=== PATIENT | female | born 1985 | race American Indian/Alaskan Native ===

== ENCOUNTER 2016-11-07 14:58 | Emergency (ER) | payer MEDICAID ==
[2016-11-07] MEDS ORDERED: TORADOL IM ONE (20:09)
--- NOTE | 2016-11-07 20:16 | Emergency Department Report ---
ED Headache HPI - General Chief Complaint: Headache Stated Complaint: SWELLING EAR/NECK Time Seen by Provider: 11/07/16 20:07 Source: patient, RN notes reviewed - History of Present Illness Initial Comments: 30 y/o female complain of headache x 2 days with bump to back of ear and neck . Quality: mild Head Injury Location: frontal Recent Head Trauma: no recent headache/trauma Modifying Factors: improves with: movement Associated Symptoms: denies symptoms, nasal congestion Allergies/Adverse Reactions: Allergies No Known Allergies Allergy (Unverified 11/07/16 20:23) Home Medications: Ambulatory Orders Amoxicillin/K Clav Tab [Augmentin 875 mg] 1 tab PO Q12HR #14 tab 11/07/16 ED Review of Systems ROS: Stated complaint: SWELLING EAR/NECK Other details as noted in HPI Constitutional: denies: chills, fever Eyes: denies: eye pain, eye discharge, vision change ENT: ear pain. denies: throat pain Respiratory: denies: cough, shortness of breath, wheezing Cardiovascular: denies: chest pain, palpitations Endocrine: no symptoms reported Gastrointestinal: denies: abdominal pain, nausea, diarrhea Genitourinary: denies: urgency, dysuria, discharge Musculoskeletal: denies: back pain, joint swelling, arthralgia Skin: denies: rash, lesions Neurological: denies: headache, weakness, paresthesias Psychiatric: denies: anxiety, depression Hematological/Lymphatic: denies: easy bleeding, easy bruising ED Past Medical Hx - Medications Home Medications: Home Medications Medication Instructions Recorded Confirmed Last Taken Type Amoxicillin/K Clav Tab [Augmentin 1 tab PO Q12HR #14 tab 11/07/16 Unknown Rx 875 mg] ED Physical Exam - General Limitations: No Limitations General appearance: alert, in no apparent distress - Head Head exam: Present: atraumatic, normocephalic - Eye Eye exam: Present: normal appearance, PERRL Pupils: Present: normal accommodation - ENT ENT exam: Present: mucous membranes moist - Expanded ENT Exam Expanded TM/Canal exam: Effusion: Right TM, Left TM, Mastoid Tenderness: Right TM, Left TM Mouth exam: Present: normal external inspection Throat exam: Positive: tonsillar erythema, other (post nasal drip ) - Neck Neck exam: Present: normal inspection, lymphadenopathy - Respiratory Respiratory exam: Present: normal lung sounds bilaterally. Absent: respiratory distress, wheezes, rales, rhonchi - Cardiovascular Cardiovascular Exam: Present: regular rate, normal rhythm. Absent: systolic murmur, diastolic murmur, rubs, gallop - GI/Abdominal GI/Abdominal exam: Present: soft, normal bowel sounds - Extremities Exam Extremities exam: Present: normal inspection - Back Exam Back exam: Present: normal inspection - Neurological Exam Neurological exam: Present: alert, oriented X3 - Psychiatric Psychiatric exam: Present: normal affect, normal mood - Skin Skin exam: Present: warm, dry, intact, normal color. Absent: rash ED Course Vital Signs 11/07/16 11/07/16 15:00 20:23 Temperature 98.4 F Pulse Rate 109 H Respiratory 20 20 Rate Blood Pressure 120/72 O2 Sat by Pulse 100 Oximetry ED Medical Decision Making - Medical Decision Making sinusitis Critical care attestation.: If time is entered above; I have spent that time in minutes in the direct care of this critically ill patient, excluding procedure time. ED Disposition Clinical Impression: Sinusitis Qualifiers: Sinusitis location: frontal Chronicity: acute Recurrence: non-recurrent Qualified Code(s): J01.10 - Acute frontal sinusitis, unspecified Disposition: DISCHARGED TO HOME OR SELFCARE Is pt being admited?: No Does the pt Need Aspirin: No Condition: Stable Instructions: Sinusitis (ED) Prescriptions: Amoxicillin/K Clav Tab [Augmentin 875 mg] 1 tab PO Q12HR #14 tab Referrals: PRIMARY CARE, [Primary Care Provider] - 3-5 Days Forms: Work/School Release Form(ED) Time of Disposition: 20:22
[2016-11-07 21:04] VITALS: BP 100/67
== END 2016-11-07 21:21 | disposition home or self-care (01) ==
LOC: ED 14:58
DX: J01.10 Acute frontal sinusitis, unspecified (principal)
CPT/HCPCS: 96372; 99282; J1885

== ENCOUNTER 2018-10-19 13:40 | Emergency (ER) | payer MEDICAID, OTHER ==
[2018-10-19] MEDS ORDERED: NORCO 5/325 PO ONE (16:49)
--- NOTE | 2018-10-19 16:49 | Emergency Department Report ---
HPI - General Chief Complaint: Upper Respiratory Infection Time Seen by Provider: 10/19/18 16:49 - HPI HPI: Room 30 The patient is a 32-year-old female presenting with a chief complaint of body aches and cough. The patient states she developed symptoms 10/16/2018 which consist of bodyaches nausea vomiting headache rhinorrhea and a cough productive of yellow sputum. Patient admits to a fever of 105F. Patient is to some shortness breath as well. 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 The patient states her children now have the same symptoms Location: [See above] Duration: 4 days Quality: Bodyaches Severity: Moderate Modifying factors: [see above] Context: [see above] Mode of transportation: [not driving] ED Past Medical Hx - Past Medical History Previous Medical History?: No - Surgical History Past Surgical History?: No - Family History Family history: no significant - Social History Smoking Status: Current Every Day Smoker (1 pack per day) Substance Use Type: None (denies illicit drug use) - Medications Home Medications: Home Medications Medication Instructions Recorded Confirmed Last Taken Type Amoxicillin/K Clav Tab [Augmentin 1 tab PO Q12HR #14 tab 11/07/16 Unknown Rx 875 mg] Ibuprofen [Motrin] 600 mg PO Q8H PRN #15 tablet 11/07/16 Unknown Rx ALBUTEROL Inhaler (OR & NICU) 2 puff IH QID PRN #1 inhalation 10/19/18 Unknown Rx [Proair] Amoxicillin [Amoxicillin TAB] 875 mg PO BID #20 tablet 10/19/18 Unknown Rx Benzonatate [Tessalon Perle] 100 mg PO TID PRN #30 capsule 10/19/18 Unknown Rx Ibuprofen [Motrin 800 MG tab] 800 mg PO Q8HR PRN #20 tablet 10/19/18 Unknown Rx Promethazine /Codeine 5 ml PO Q6H PRN #100 ml 10/19/18 Unknown Rx [Phenergan/Codeine 6.25-10 mg/5 ml] ED Review of Systems ROS: Stated complaint: FLU LIKE Other details as noted in HPI Constitutional: fever Eyes: denies: eye pain ENT: other (rhinorrhea) Respiratory: cough Cardiovascular: denies: dyspnea on exertion Endocrine: no symptoms reported Gastrointestinal: abdominal pain, nausea, vomiting Genitourinary: denies: dysuria Musculoskeletal: myalgia Neurological: headache Physical Exam - Physical Exam Vital Signs: Vital Signs 10/19/18 13:44 Temperature 99.7 F H Pulse Rate 116 H Respiratory 20 Rate Blood Pressure 126/82 O2 Sat by Pulse 96 Oximetry Physical Exam: GENERAL: The patient is well-developed well-nourished female sitting in chair. Been moderate discomfort HEENT: Normocephalic. Atraumatic. Extraocular motions are intact. Patient has moist mucous membranes. Nasal congestion. Oropharynx clear NECK: Supple. No meningitic signs are noted. Trachea midline CHEST/LUNGS: Clear to auscultation. There is no respiratory distress noted. HEART/CARDIOVASCULAR: Regular. There is no tachycardia. There is no gallop rub or murmur. ABDOMEN: Abdomen is soft, nontender. Patient has normal bowel sounds. There is no abdominal distention. SKIN: There is no rash. There is no edema. There is no diaphoresis. NEURO: The patient is awake, alert, and oriented. The patient is cooperative. The patient has normal speech MUSCULOSKELETAL: There is no evidence of acute injury. ED Course Vital Signs 10/19/18 13:44 Temperature 99.7 F H Pulse Rate 116 H Respiratory 20 Rate Blood Pressure 126/82 O2 Sat by Pulse 96 Oximetry - Reevaluation(s) Reevaluation #1: 10/19/18 17:42 Heart rate has improved to 89 bpm ED Medical Decision Making - Lab Data Laboratory Tests 10/19/18 17:00 Influenza A (Rapid) Negative Influenza B (Rapid) Negative - Radiology Data Radiology results: image reviewed (chest x-ray) interpreted by me: Chest x-ray-no definite focal infiltrates - Differential Diagnosis influenza, pneumonia, sinusitis, bronchitis Critical care attestation.: If time is entered above; I have spent that time in minutes in the direct care of this critically ill patient, excluding procedure time. ED Disposition Clinical Impression: Acute bronchitis, URI (upper respiratory infection) Disposition: - TO HOME OR SELFCARE Is pt being admited?: No Does the pt Need Aspirin: No Condition: Stable Instructions: Acute Bronchitis (ED) Additional Instructions: Return to the emergency department immediately should you develop worsening symptoms, fever, inability to tolerate food or liquid or any other concerns. Prescriptions: ALBUTEROL Inhaler (OR & NICU) [Proair] 2 puff IH QID PRN #1 inhalation PRN Reason: Shortness Of Breath Amoxicillin [Amoxicillin TAB] 875 mg PO BID #20 tablet Benzonatate [Tessalon Perle] 100 mg PO TID PRN #30 capsule PRN Reason: Cough Ibuprofen [Motrin 800 MG tab] 800 mg PO Q8HR PRN #20 tablet PRN Reason: Pain, Moderate (4-6) Promethazine /Codeine [Phenergan/Codeine 6.25-10 mg/5 ml] 5 ml PO Q6H PRN #100 ml PRN Reason: cough Referrals: PRIMARY CARE, [Primary Care Provider] - 3-5 Days BECCA FARRELL DO [Staff Physician] - 3-5 Days Time of Disposition: 17:42
[2018-10-19 17:44] VITALS: BP 100/70
--- NOTE | 2018-10-19 18:27 | XRay Report ---
FINAL REPORT PROCEDURE: XR CHEST ROUTINE 2V TECHNIQUE: PA and lateral chest radiographs were obtained. CPT 00089 HISTORY: productive cough COMPARISON: No prior studies are available for comparison. FINDINGS: Heart: Normal. Mediastinum/Vessels: Normal. Lungs/Pleural space: No infiltrate, effusion, or pneumothorax. Bony thorax: No acute osseous abnormality. Other: IMPRESSION: No pulmonary infiltrates are present.
== END 2018-10-19 17:48 | disposition home or self-care (01) ==
LOC: ED 13:40
DX: J20.9 Acute bronchitis, unspecified (principal); J06.9 Acute upper respiratory infection, unspecified; F17.200 Nicotine dependence, unspecified, uncomplicated
CPT/HCPCS: 71046; 87400